=== PATIENT | female | born 1980 ===

== ENCOUNTER 2016-09-01 00:50 | Emergency (ER) | payer OTHER ==
[2016-09-01 00:50] VITALS: BMI 26.5
[2016-09-01 01:01] VITALS: O2SAT 100
[2016-09-01] MEDS ORDERED: Sodium Chloride 0.9% 1,000 ML IV ONE (01:03)
[2016-09-01] MEDS ORDERED: Iohexol 240 (50 ml) PO ONE (01:04)
[2016-09-01] MEDS ORDERED: Iohexol 240 (50 ml) ONE (01:14)
[2016-09-01] MEDS ORDERED: Sodium Chloride 0.9% 1,000 ML ONE (01:14)
--- NOTE | 2016-09-01 01:14 | C.PDOC ---
History Of Present Illness 36 y/o female complaining of abdominal pain x4 days associated with nausea, diarrhea, and dysuria. No vomiting, fever, chills, or other complaint. Reports a history of endometriosis with ablation years ago. Chief Complaint (Nursing): Abdominal Pain History Per: Patient History/Exam Limitations: no limitations Onset/Duration Of Symptoms: Days Current Symptoms Are (Timing): Still Present Severity: Moderate Location Of Pain/Discomfort: LUQ, LLQ Radiation Of Pain To:: None Quality Of Discomfort: "Pain" Associated Symptoms: Nausea, Diarrhea, Urinary Symptoms. denies: Fever, Chills , Vomiting, Loss Of Appetite, Back Pain, Chest Pain, Constipation Exacerbating Factors: None Alleviating Factors: None Recent travel outside of the [place]: No Past Medical History Vital Signs: Last Vital Signs Temp 97.9 F 09/01/16 03:56 Pulse 65 09/01/16 03:56 Resp 16 09/01/16 03:56 BP 101/65 09/01/16 03:56 Pulse Ox 100 09/01/16 05:57 - Medical History PMH: Denies: Diabetes, Hepatitis, HIV, HTN, Seizures, Sexually Transmitted Disease - [facility] Procedures INSPECTION OF BLADDER, ENDO (02/09/16) RESECTION OF BILATERAL FALLOPIAN TUBES, OPEN APPROACH (02/09/16) RESECTION OF CERVIX, OPEN APPROACH (02/09/16) RESECTION OF UTERUS, OPEN APPROACH (02/09/16) Family History: States: Unknown Family Hx - Social History Hx Alcohol Use: Yes Hx Substance Use: No - Immunization History Hx Tetanus Toxoid Vaccination: No Hx Influenza Vaccination: Yes Hx Pneumococcal Vaccination: Yes Review Of Systems Except As Marked, All Systems Reviewed And Found Negative. Gastrointestinal: Positive for: Nausea, Abdominal Pain, Diarrhea Genitourinary: Positive for: Dysuria Physical Exam - Physical Exam Appears: Well, No Acute Distress Skin: Normal Color, Warm, Dry Eye(s): bilateral: Normal Inspection, PERRL, EOMI Nose: Normal Throat: Normal Neck: Normal Cardiovascular: Rhythm Regular Respiratory: Normal Breath Sounds Gastrointestinal/Abdominal: Bowel Sounds, Soft, Tenderness (Severe left sided), No Mass, No Distention, No Guarding, No Rebound, No Hernia Back: Normal Inspection Extremity: Normal ROM ED Course And Treatment - Laboratory Results Result Diagrams: 09/01/16 01:15 09/01/16 01:15 O2 Sat by Pulse Oximetry: 100 (RA) Pulse Ox Interpretation: Normal Progress Note: Labs, IVF, CT Abdomen without and with contrast. Medical Decision Making Medical Decision Making: Name: JEANNETTE PRUITT Age: 36Years F Date: 09/01/2016 SSN: [id number] : [id number] Study: CT ABDOMEN/PELVIS W Requesting Physician: Bob Desai Images: 625 Addl Studies: Provided Clinical History: left sided abd pain CONFIDENTIALITY STATEMENT This transmission is confidential and is intended to be a privileged communication. It is intended only for the use of the addressee. Access to this message by anyone else is unauthorized. If you are not the intended recipient, any disclosure, copying, distribution or any action taken, or omitted to be taken in reliance on it is prohibited and may be unlawful. If you received this communication in error, please notify us by telephone, so that return of this document to us can be arranged. Page 1 of 3 EXAM: CT Abdomen and Pelvis With Intravenous Contrast CLINICAL HISTORY: 36 years old, female; Pain; Abdominal pain; Prior surgery; Surgery type: Hysterectomy; Additional info: Left sided abd pain TECHNIQUE: Axial computed tomography images of the abdomen and pelvis with intravenous contrast. This CT exam was performed using one or more of the following dose reduction techniques : automated exposure control, adjustment of the mA and/or kV according to patient size, and/ or use of iterative reconstruction technique. Coronal and sagittal reformatted images were created and reviewed. CONTRAST: 100 mL of [id number] administered intravenously. COMPARISON: No relevant prior studies available. FINDINGS: Lower thorax: Minimal atelectasis. 0.3 cm nodule vs focal scarring LEFT lower lobe. ABDOMEN: Liver: Unremarkable. No mass. Gallbladder and bile ducts: No calcified stones. No ductal dilation. Pancreas: No ductal dilation. No mass. Spleen: No splenomegaly. Adrenals: No mass. Kidneys and ureters: No mass. No hydronephrosis. Stomach and bowel: No definite mural thickening. No obstruction. Appendix: Normal caliber. No inflammation. PELVIS: Bladder: Unremarkable. Reproductive: 4.2 x 4.6 x 3.8 cm hypodense lesion within LEFT ovary. Small cyst/ follicle within RIGHT ovary. ABDOMEN and PELVIS: Intraperitoneal space: No significant fluid collection. No free air. Bones/joints: No acute fracture. Soft tissues: Unremarkable. Vasculature: Unremarkable. No abdominal aortic aneurysm. Lymph nodes: No pathologically enlarged lymph nodes. IMPRESSION: 1. Probable LEFT ovarian cyst. Consider ultrasound. 2. Pulmonary nodules. For low-risk patients, no follow-up is necessary. For high -risk patients (smoking history or other known risk factors) recommend CT at 12 months and if unchanged, no further follow-up. 3. Incidental/non-acute findings are described above. Thank you for allowing us to participate in the care of your patient. Dictated and Authenticated by: Daniel Nash MD EXAM: US Pelvis, Transvaginal CLINICAL HISTORY: 36 years old, female; Pain; Pelvic pain; Prior surgery; Surgery date: 6+ months ; Surgery type: Hysterectomy; Additional info: Lower abd pain TECHNIQUE: Real-time transvaginal pelvic ultrasound (complete) with image documentation. Transvaginal imaging was used for better evaluation of the endometrium and adnexa. COMPARISON: CT - ABD PELVIS PO IV CONTRAST 09/01/2016 2:45:23 AM FINDINGS: Uterus/cervix: Hysterectomy. Right ovary: 3.4 x 1.9 x 2.6 cm in size. 1.9 x 1.2 x 1.6 cm anechoic lesion with crenulated margins. Small follicles. Normal flow. Left ovary: 5.2 x 5.0 x 4.7 cm heterogeneous, predominately hyperechoic lesion within LEFT adnexal region. Free fluid: No significant free fluid. Bladder: Empty bladder which cannot be evaluated with this probe. IMPRESSION: 1. LEFT adnexal lesion, indeterminate. Recommend MRI correlation. 2. Involuting or ruptured RIGHT ovarian follicle/cyst. 3. Incidental/non-acute findings are described above. [facility] Dictated and Authenticated by: Daniel Nash MD 09/01/2016 5:18 AM Eastern Time ([place] & [place]) Disposition Counseled Patient/Family Regarding: Diagnosis - Disposition Referrals: [facility] at [facility] [Outside] Disposition: HOME/ ROUTINE Disposition Time: 05:49 Condition: STABLE Prescriptions: Ciprofloxacin [Cipro] 1 tab PO BID #14 tab Naproxen [Naprosyn Tab] 375 mg PO TIDPC #20 tab Instructions: Ovarian Cyst (ED), Urinary Tract Infection in Women (DC), Abdominal Pain (ED) Forms: Gen Discharge Inst Uzbek Print Language: BULGARIAN - POA Present On Arrival: None - Clinical Impression Clinical Impression: Abdominal pain, Urinary tract infection, Ovarian mass, left - Scribe Statement The provider has reviewed the documentation as recorded by the Scribe Dee Ramirez
[2016-09-01 01:18] LABS: BASO # 0.1 K/uL (0.0-0.2); EOS # 0.1 K/uL (0.0-0.7); EOS % 0.9 % (0.0-4.0); HEMATOCRIT 39.7 % (34.0-47.0); LYMPH # 3.9 K/uL (1.0-4.3); LYMPH % 32.7 % (20.0-40.0); MEAN CELL VOLUME 91.4 fL (81.0-99.0); MEAN CORPUSCULAR HEMOGLOBIN 30.8 pg (27.0-31.0); MEAN CORPUSCULAR HGB CONC 33.7 g/dL (33.0-37.0); MEAN PLATELET VOLUME 9.4 fL (7.2-11.7); MONO # 0.8 K/uL (0.0-0.8); MONO % 6.3 % (0.0-10.0); WHITE BLOOD COUNT 11.8 K/uL (4.8-10.8)
[2016-09-01 01:18] LABS: RBC URINE 33 /hpf (0-3); URINE BACTERIA RARE (<OCC); URINE BILIRUBIN NEGATIVE (NEGATIVE); URINE BLOOD 2+ (NEGATIVE); URINE COLOR Yellow (YELLOW); URINE GLUCOSE (UA) NORMAL (Normal); URINE KETONE TRACE mg/dL (NEGATIVE); URINE LEUKOCYTE ESTERASE 2+ Leu/uL (Negative); URINE PROTEIN 1+ mg/dL (NEGATIVE); URINE UROBILINOGEN NORMAL mg/dL (0.2-1.0); WBC URINE 12 /hpf (0-5)
[2016-09-01 01:33] LABS: CHLORIDE 99 mmol/L (98-107)
[2016-09-01 01:34] LABS: POTASSIUM 3.5 mmol/L (3.6-5.2); SODIUM 135 mmol/L (132-148)
[2016-09-01 01:36] LABS: BILIRUBIN,TOTAL 0.8 mg/dL (0.2-1.3); CARBON DIOXIDE 26 mmol/L (22-30); GFR AFRICAN-AMERICAN > 60
[2016-09-01 01:37] LABS: ALB/GLOB RATIO 1.2 (1.0-2.1); ALKALINE PHOSPHATASE 83 U/L (38-126); ALT/SGPT 22 U/L (9-52); AST/SGOT 33 U/L (14-36); BLOOD UREA NITROGEN 11 mg/dL (7-17); CALCIUM 8.8 mg/dl (8.6-10.4); GLUCOSE,RANDOM 89 mg/dL (65-105); TOTAL PROTEIN 7.5 g/dL (6.3-8.3)
[2016-09-01] MEDS ORDERED: Iodixanol 320 MG/ML 100 ML BOTTLE IV ONE (02:30)
[2016-09-01] MEDS ORDERED: Ciprofloxacin 400mg/200ml D5W 400 MG/200 ML BAG IVPB STA (02:33)
[2016-09-01] MEDS ORDERED: Ciprofloxacin 400mg/200ml D5W 400 MG/200 ML BAG IVPB ONE (02:48)
--- NOTE | 2016-09-01 03:25 | CT ---
EXAM: CT Abdomen and Pelvis With Intravenous Contrast CLINICAL HISTORY: 36 years old, female; Pain; Abdominal pain; Prior surgery; Surgery type: Hysterectomy; Additional info: Left sided abd pain TECHNIQUE: Axial computed tomography images of the abdomen and pelvis with intravenous contrast. This CT exam was performed using one or more of the following dose reduction techniques: automated exposure control, adjustment of the mA and/or kV according to patient size, and/or use of iterative reconstruction technique. Coronal and sagittal reformatted images were created and reviewed. CONTRAST: 100 mL of [id number] administered intravenously. COMPARISON: No relevant prior studies available. FINDINGS: Lower thorax: Minimal atelectasis. 0.3 cm nodule vs focal scarring LEFT lower lobe. ABDOMEN: Liver: Unremarkable. No mass. Gallbladder and bile ducts: No calcified stones. No ductal dilation. Pancreas: No ductal dilation. No mass. Spleen: No splenomegaly. Adrenals: No mass. Kidneys and ureters: No mass. No hydronephrosis. Stomach and bowel: No definite mural thickening. No obstruction. Appendix: Normal caliber. No inflammation. PELVIS: Bladder: Unremarkable. Reproductive: 4.2 x 4.6 x 3.8 cm hypodense lesion within LEFT ovary. Small cyst/follicle within RIGHT ovary. ABDOMEN and PELVIS: Intraperitoneal space: No significant fluid collection. No free air. Bones/joints: No acute fracture. Soft tissues: Unremarkable. Vasculature: Unremarkable. No abdominal aortic aneurysm. Lymph nodes: No pathologically enlarged lymph nodes. IMPRESSION: 1. Probable LEFT ovarian cyst. Consider ultrasound. 2. Pulmonary nodules. For low-risk patients, no follow-up is necessary. For high-risk patients (smoking history or other known risk factors) recommend CT at 12 months and if unchanged, no further follow-up. 3. Incidental/non-acute findings are described above.
--- NOTE | 2016-09-01 05:18 | US ---
EXAM: US Pelvis, Transvaginal CLINICAL HISTORY: 36 years old, female; Pain; Pelvic pain; Prior surgery; Surgery date: 6+ months; Surgery type: Hysterectomy; Additional info: Lower abd pain TECHNIQUE: Real-time transvaginal pelvic ultrasound (complete) with image documentation. Transvaginal imaging was used for better evaluation of the endometrium and adnexa. COMPARISON: CT - ABD PELVIS PO IV CONTRAST 09/01/2016 2:45:23 AM FINDINGS: Uterus/cervix: Hysterectomy. Right ovary: 3.4 x 1.9 x 2.6 cm in size. 1.9 x 1.2 x 1.6 cm anechoic lesion with crenulated margins. Small follicles. Normal flow. Left ovary: 5.2 x 5.0 x 4.7 cm heterogeneous, predominately hyperechoic lesion within LEFT adnexal region. Free fluid: No significant free fluid. Bladder: Empty bladder which cannot be evaluated with this probe. IMPRESSION: 1. LEFT adnexal lesion, indeterminate. Recommend MRI correlation. 2. Involuting or ruptured RIGHT ovarian follicle/cyst. 3. Incidental/non-acute findings are described above.
[2016-09-01 06:07] VITALS: BP 100/65; PULSE 64; RESP 18; TEMP 98
== END 2016-09-01 06:08 | disposition home or self-care (01) ==
LOC: C.ER 00:50
DX: N39.0 Urinary tract infection, site not specified (principal); N83.8 Other noninflammatory disorders of ovary, fallopian tube and broad ligament; R10.12 Left upper quadrant pain
CPT/HCPCS: 74177; 76830; 80053; 81001; 83690; 84702; 85025; 87086; 96365; 96375; 99285; J0744; J1885; J2270; J7040; Q9966; Q9967

== ENCOUNTER 2017-05-31 09:36 | Emergency (ER) | payer OTHER ==
[2017-05-31 09:37] VITALS: BMI 26.5
[2017-05-31 09:59] VITALS: RESP 18
[2017-05-31] MEDS ORDERED: Sodium Chloride 0.9% 1,000 ML IV ONE (10:50)
[2017-05-31] MEDS ORDERED: Sodium Chloride 0.9% 1,000 ML ONE (10:57)
--- NOTE | 2017-05-31 11:05 | C.PDOC ---
History Of Present Illness 37 y/o female presents to ED with complaints of left sided back pain radiating to the abdomen for 2 months worse for 3 days with associated dysuria and nausea. Patient states pain is worse with movement and last took Motrin 800mg yesterday with mild improvement. Patient denies fever, urinary frequency, hematuria, vaginal bleeding, vaginal discharge or any other complaints at this time. Time Seen by Provider: 05/31/17 10:19 Chief Complaint (Nursing): Abdominal Pain History Per: Patient History/Exam Limitations: no limitations Onset/Duration Of Symptoms: Days Current Symptoms Are (Timing): Still Present Past Medical History Reviewed: Historical Data, Nursing Documentation, Vital Signs Vital Signs: Last Vital Signs Temp 98 F 05/31/17 17:00 Pulse 98 H 05/31/17 17:00 Resp 18 05/31/17 17:00 BP 119/73 05/31/17 17:00 Pulse Ox 99 05/31/17 17:00 - Medical History PMH: No Chronic Diseases Surgical History: No Surg Hx - [facility] Procedures INSPECTION OF BLADDER, ENDO (02/09/16) RESECTION OF BILATERAL FALLOPIAN TUBES, OPEN APPROACH (02/09/16) RESECTION OF CERVIX, OPEN APPROACH (02/09/16) RESECTION OF UTERUS, OPEN APPROACH (02/09/16) Family History: States: No Known Family Hx - Social History Hx Alcohol Use: No Hx Substance Use: No - Immunization History Hx Tetanus Toxoid Vaccination: Yes Hx Influenza Vaccination: No Hx Pneumococcal Vaccination: No Review Of Systems Constitutional: Negative for: Fever, Chills Gastrointestinal: Positive for: Nausea, Abdominal Pain. Negative for: Vomiting Genitourinary: Positive for: Dysuria. Negative for: Frequency, Vaginal Discharge, Vaginal Bleeding Musculoskeletal: Positive for: Back Pain Skin: Negative for: Rash Physical Exam - Physical Exam Appears: Non-toxic, No Acute Distress Skin: Warm, Dry, No Rash Head: Atraumatic, Normacephalic Eye(s): bilateral: Normal Inspection, EOMI Nose: Normal Oral Mucosa: Moist Neck: Normal ROM, Supple Chest: Symmetrical Cardiovascular: Rhythm Regular Respiratory: Normal Breath Sounds, No Accessory Muscle Use, No Rales, No Rhonchi , No Wheezing Gastrointestinal/Abdominal: Soft, Tenderness (Suprapubic), No Guarding, No Rebound Back: No Vertebral Tenderness, Other (Left paralumbar tenderness) Extremity: Normal ROM Neurological/Psych: Oriented x3 ED Course And Treatment - Laboratory Results Result Diagrams: 05/31/17 11:10 05/31/17 11:10 O2 Sat by Pulse Oximetry: 100 (RA) Pulse Ox Interpretation: Normal - CT Scan/US Abdomen/ Pelvis Other Rad Studies (CT/US): Read By Radiologist, Radiology Report Reviewed CT/US Interpretation: PROCEDURE: CT Abdomen and Pelvis without intravenous contrast. HISTORY: Abdominal pain. COMPARISON: 09/01/2016. TECHNIQUE: CT scan of the abdomen and pelvis was performed without administration of intravenous contrast. Oral contrast was not administered. Coronal and sagittal reformatted images were obtained. Radiation dose: Total exam DLP = 309.95 mGy- cm. This CT exam was performed using one or more of the following dose reduction techniques: Automated exposure control, adjustment of the mA and/or kV according to patient size, and/or use of iterative reconstruction technique. FINDINGS: LOWER THORAX: The lung bases are clear. LIVER: Normal in size. No gross lesion or ductal dilatation. GALLBLADDER AND BILE DUCTS: The gallbladder is contracted. PANCREAS: Normal in size. No calcifications or ductal dilatation. SPLEEN: Normal in size and appearance. ADRENALS: No discrete nodule. KIDNEYS AND URETERS: Normal in size without hydronephrosis or nephrolithiasis. VASCULATURE: No aortic aneurysm. BOWEL: The small bowel loops are normal in caliber the colon is unremarkable. No bowel dilatation or obstruction. APPENDIX: Normal appendix. PERITONEUM: No free fluid. No free air. LYMPH NODES: No enlarged lymph nodes. BLADDER: Unremarkable. REPRODUCTIVE: The uterus is surgically absent. There is a 5.3 x 4.7 cm cystic mass with layering high attenuation fluid fluid level in the right ovary. BONES : No acute fracture. Within normal limits for the patient's age. OTHER FINDINGS: None. IMPRESSION: 1. 5.3 x 4.7 cm presumable hemorrhagic cyst in the right ovary. If clinically indicated, correlation with pelvic ultrasound may be performed to evaluate for torsion. 2. No CT evidence for acute abdominal or pelvic abnormality. Pelvic US Other Rad Studies (CT/US): Read By Radiologist, Radiology Report Reviewed CT/US Interpretation: Indication: Partial hysterectomy. Left lower quadrant pain. Comparison: Transvaginal pelvic ultrasound performed 09/01/16. Technique : Real-time transabdominal pelvic ultrasound was performed. In addition a transvaginal pelvic ultrasound was necessary to better depict pelvic anatomy. Findings: The patient is status post partial hysterectomy. The right ovary measures approximately 6.3 x 4.1 x 4.9 cm and complaints 5.1 x 3.8 x 4.2 cm complex right ovarian cyst, likely hemorrhagic cyst. The left ovary measures approximately 3.3 x 2.3 x 2.8 cm. Blood flow is demonstrated to both ovaries. No significant pelvic free fluid evident. Impression: Status post hysterectomy. 5.1 x 3.8 x 4.2 cm complex right ovarian cyst, likely hemorrhagic cyst. Recommend 6 week ultrasound follow-up to assess resolution. Progress Note: Blood work, UA ordered. Toradol Flexeril ordered. On re- evaluation, patient is resting comfortably. Notes currently pain improved though pain is intermittent. No fever, no bony tenderness, no numbness, no weakness, or abdominal pain. Tolerating PO. Pt was given results of CT /US and instructed outpt follow up in 1-2 days. Case discussed and results evlauated by Dr Somers, agreed upon plan and treatment. Disposition - Disposition Referrals: [facility] at [facility] [Outside] Disposition: HOME/ ROUTINE Disposition Time: 16:36 Condition: STABLE Additional Instructions: Follow up with primary medical doctor in 1-3 days without fail for further evaluation. Take medications as prescribed. Return to the emergency department at any time if symptoms persist or worsen. Prescriptions: Cyclobenzaprine [Cyclobenzaprine HCl] 10 mg PO BID #20 tab Naproxen [Naprosyn] 1 tab PO BID PRN #20 tab PRN Reason: Pain Instructions: Ovarian Cyst (ED) Forms: [employer] (Surinamese) Print Language: GUYANESE - Clinical Impression Clinical Impression: Back pain, Ovarian cyst - PA / SKIP TRACER / Resident Statement MD/DO has reviewed & agrees with the documentation as recorded. - Scribe Statement The provider has reviewed the documentation as recorded by the Dayna Patel All medical record entries made by the Dayna were at my direction and personally dictated by me. I have reviewed the chart and agree that the record accurately reflects my personal performance of the history, physical exam, medical decision making, and the department course for this patient. I have also personally directed, reviewed, and agree with the discharge instructions and disposition.
[2017-05-31 11:19] LABS: BASO % 0.5 % (0.0-2.0); EOS # 0.1 K/uL (0.0-0.7); EOS % 0.9 % (0.0-4.0); HEMOGLOBIN 13.7 g/dL (11.0-16.0); LYMPH # 1.6 K/uL (1.0-4.3); LYMPH % 21.5 % (20.0-40.0); MEAN CORPUSCULAR HEMOGLOBIN 32.3 pg (27.0-31.0); MEAN CORPUSCULAR HGB CONC 35.2 g/dL (33.0-37.0); MEAN PLATELET VOLUME 8.8 fL (7.2-11.7); MONO # 0.7 K/uL (0.0-0.8); MONO % 9.5 % (0.0-10.0); NEUT # 5.1 K/uL (1.8-7.0); NEUT % 67.6 % (50.0-75.0); RBC 4.24 Mil/uL (3.80-5.20); WHITE BLOOD COUNT 7.6 K/uL (4.8-10.8)
[2017-05-31 11:44] LABS: ALB/GLOB RATIO 1.2 (1.0-2.1); ALT/SGPT 23 U/L (9-52); AST/SGOT 22 U/L (14-36); BLOOD UREA NITROGEN 10 mg/dL (7-17); CALCIUM 9.1 mg/dl (8.6-10.4); GFR AFRICAN-AMERICAN > 60; GFR NON-AFRICAN AMERICAN > 60; LIPASE 67 U/L (23-300)
[2017-05-31 11:52] LABS: HCG,QUALITATIVE URINE NEGATIVE (NEGATIVE)
[2017-05-31 12:04] LABS: SQUAMOUS EPITHIAL 5 /hpf (0-5); URINE BACTERIA OCC (<OCC); URINE BILIRUBIN NEGATIVE (NEGATIVE); URINE BLOOD 2+ (NEGATIVE); URINE CLARITY Hazy (Clear); URINE COLOR Yellow (YELLOW); URINE GLUCOSE (UA) NORMAL (Normal); URINE LEUKOCYTE ESTERASE NEG Leu/uL (Negative); URINE NITRATE NEGATIVE (NEGATIVE); URINE PROTEIN NEGATIVE (NEGATIVE); URINE UROBILINOGEN NORMAL mg/dL (0.2-1.0)
--- NOTE | 2017-05-31 14:11 | CT ---
PROCEDURE: CT Abdomen and Pelvis without intravenous contrast HISTORY: Abdominal pain COMPARISON: 09/01/2016. TECHNIQUE: CT scan of the abdomen and pelvis was performed without administration of intravenous contrast. Oral contrast was not administered. Coronal and sagittal reformatted images were obtained. Radiation dose: Total exam DLP = 309.95 mGy-cm. This CT exam was performed using one or more of the following dose reduction techniques: Automated exposure control, adjustment of the mA and/or kV according to patient size, and/or use of iterative reconstruction technique. FINDINGS: LOWER THORAX: The lung bases are clear. LIVER: Normal in size. No gross lesion or ductal dilatation. GALLBLADDER AND BILE DUCTS: The gallbladder is contracted. PANCREAS: Normal in size. No calcifications or ductal dilatation. SPLEEN: Normal in size and appearance. ADRENALS: No discrete nodule. KIDNEYS AND URETERS: Normal in size without hydronephrosis or nephrolithiasis. VASCULATURE: No aortic aneurysm. BOWEL: The small bowel loops are normal in caliber the colon is unremarkable. No bowel dilatation or obstruction. APPENDIX: Normal appendix. PERITONEUM: No free fluid. No free air. LYMPH NODES: No enlarged lymph nodes. BLADDER: Unremarkable. REPRODUCTIVE: The uterus is surgically absent. There is a 5.3 x 4.7 cm cystic mass with layering high attenuation fluid fluid level in the right ovary. BONES: No acute fracture. Within normal limits for the patient's age. OTHER FINDINGS: None. IMPRESSION: 1. 5.3 x 4.7 cm presumable hemorrhagic cyst in the right ovary. If clinically indicated, correlation with pelvic ultrasound may be performed to evaluate for torsion. 2. No CT evidence for acute abdominal or pelvic abnormality.
--- NOTE | 2017-05-31 16:11 | US ---
Indication: Partial hysterectomy. Left lower quadrant pain Comparison: Transvaginal pelvic ultrasound performed 09/01/16 Technique: Real-time transabdominal pelvic ultrasound was performed. In addition a transvaginal pelvic ultrasound was necessary to better depict pelvic anatomy. Findings: The patient is status post partial hysterectomy. The right ovary measures approximately 6.3 x 4.1 x 4.9 cm and complaints 5.1 x 3.8 x 4.2 cm complex right ovarian cyst, likely hemorrhagic cyst. The left ovary measures approximately 3.3 x 2.3 x 2.8 cm. Blood flow is demonstrated to both ovaries. No significant pelvic free fluid evident. Impression: Status post hysterectomy. 5.1 x 3.8 x 4.2 cm complex right ovarian cyst, likely hemorrhagic cyst. Recommend 6 week ultrasound follow-up to assess resolution.
[2017-05-31] MEDS ORDERED: Oxycodone/Acetaminophen 5/325 mg Tab PO STA (16:35)
[2017-05-31 17:02] VITALS: BP 119/73; PULSE 98; TEMP 98
[2017-05-31 17:35] VITALS: O2SAT 100
== END 2017-05-31 17:02 | disposition home or self-care (01) ==
LOC: C.ER 09:36
DX: N83.201 Unspecified ovarian cyst, right side (principal); M54.9 Dorsalgia, unspecified
CPT/HCPCS: 74176; 76830; 76856; 80053; 81001; 83690; 84703; 85025; 87086; 96374; 99284; J1885; J7040

== ENCOUNTER 2017-10-07 08:50 | Emergency (ER) | payer OTHER ==
[2017-10-07 08:54] VITALS: BMI 22.8
[2017-10-07 08:57] VITALS: RESP 18; O2SAT 100
[2017-10-07] MEDS ORDERED: Sodium Chloride 0.9% 1,000 ML IV ONE (09:10)
--- NOTE | 2017-10-07 09:12 | C.PDOC ---
History Of Present Illness 37 year old female presents to ED for evaluation of headache and nausea since yesterday. Pt also reports diffuse abdominal pain and 4 episodes of diarrhea today. She denies fever, vomiting, diarrhea, chest pain, shortness of breath, dysuria, hematuria, neck pain/stiffness. Time Seen by Provider: 10/07/17 08:54 Chief Complaint (Nursing): Abdominal Pain History Per: Patient History/Exam Limitations: no limitations Onset/Duration Of Symptoms: Days Current Symptoms Are (Timing): Still Present Severity: Mild Location Of Pain/Discomfort: Diffuse Radiation Of Pain To:: None Quality Of Discomfort: "Pain" Associated Symptoms: Nausea, Diarrhea. denies: Fever, Chills, Vomiting, Urinary Symptoms Exacerbating Factors: None Additional History Per: Patient Past Medical History Reviewed: Historical Data, Nursing Documentation, Vital Signs Vital Signs: Last Vital Signs Temp 98.1 F 10/07/17 11:31 Pulse 59 L 10/07/17 11:31 Resp 18 10/07/17 11:31 BP 97/63 L 10/07/17 11:31 Pulse Ox 100 10/08/17 12:22 - Medical History PMH: No Chronic Diseases - [facility] Procedures INSPECTION OF BLADDER, ENDO (02/09/16) RESECTION OF BILATERAL FALLOPIAN TUBES, OPEN APPROACH (02/09/16) RESECTION OF CERVIX, OPEN APPROACH (02/09/16) RESECTION OF UTERUS, OPEN APPROACH (02/09/16) Family History: States: No Known Family Hx - Social History Hx Alcohol Use: No Hx Substance Use: No - Immunization History Hx Tetanus Toxoid Vaccination: Yes Hx Influenza Vaccination: No Hx Pneumococcal Vaccination: No Review Of Systems Except As Marked, All Systems Reviewed And Found Negative. Constitutional: Negative for: Fever, Chills Cardiovascular: Negative for: Chest Pain Respiratory: Negative for: Cough, Shortness of Breath Gastrointestinal: Positive for: Nausea, Abdominal Pain, Diarrhea. Negative for : Vomiting, Melena, Hematochezia Genitourinary: Negative for: Dysuria, Frequency, Hematuria Neurological: Positive for: Headache. Negative for: Weakness, Numbness, Dizziness Physical Exam - Physical Exam Appears: Well, Non-toxic, No Acute Distress Skin: Normal Color, Warm, Dry Head: Atraumatic, Normacephalic Eye(s): bilateral: Normal Inspection, PERRL, EOMI Oral Mucosa: Moist Neck: Supple, Other (no meningismus) Cardiovascular: Rhythm Regular Respiratory: Normal Breath Sounds, No Rales, No Rhonchi, No Wheezing Gastrointestinal/Abdominal: Bowel Sounds, Soft, Tenderness (epigastric, LLQ mild TTP), No Guarding, No Rebound, Other ((-)Ramey's, (-)McBurney's) Back: No CVA Tenderness Extremity: Normal ROM Neurological/Psych: Oriented x3 ED Course And Treatment - Laboratory Results Result Diagrams: 10/07/17 09:34 10/07/17 09:34 O2 Sat by Pulse Oximetry: 100 (RA) Pulse Ox Interpretation: Normal Progress Note: Blood work, UA, Upreg ordered and reviewed. Pt given IV NS bolus , IV toradol and IV Zofran. 11:15- Patient states she feels better. Will discharge home, Rxs for tylenol and zofran given. She was instructed to follow up with PMD in 1-2 days, and understands she should return to ED if symptoms worsen. Reevaluation Time: 10:50 Reassessment Condition: Improved (On reassessment, patient is resting comfortably, states her abdominal pain has resolved but she still has mild headache. PO tylenol ordered.) Disposition Counseled Patient/Family Regarding: Studies Performed, Diagnosis, Need For Followup, Rx Given - Disposition Referrals: Bernardo Pa Jr., MD [Medical Doctor] - Disposition: HOME/ ROUTINE Disposition Time: 11:25 Condition: STABLE Prescriptions: Acetaminophen [Tylenol 325mg tab] 650 mg PO Q6 PRN #30 tab PRN Reason: pain/fever Ondansetron [Zofran Odt] 4 mg PO Q8 PRN #10 odt PRN Reason: Nausea/Vomiting Instructions: Nausea and Vomiting, Adult (DC) Forms: [employer] (Thai) Print Language: MACEDONIAN - Clinical Impression Clinical Impression: Nausea, Vomiting, Abdominal pain, Headache - Scribe Statement The provider has reviewed the documentation as recorded by the Piliibjackelyn Acevedo All medical record entries made by the Scribe were at my direction and personally dictated by me. I have reviewed the chart and agree that the record accurately reflects my personal performance of the history, physical exam, medical decision making, and the department course for this patient. I have also personally directed, reviewed, and agree with the discharge instructions and disposition.
[2017-10-07 09:39] LABS: BASO % 0.6 % (0.0-2.0); EOS # 0.1 K/uL (0.0-0.7); EOS % 0.6 % (0.0-4.0); HEMOGLOBIN 14.4 g/dL (11.0-16.0); LYMPH # 2.7 K/uL (1.0-4.3); LYMPH % 32.3 % (20.0-40.0); MEAN CELL VOLUME 92.2 fL (81.0-99.0); MEAN CORPUSCULAR HEMOGLOBIN 32.1 pg (27.0-31.0); MEAN CORPUSCULAR HGB CONC 34.8 g/dL (33.0-37.0); MEAN PLATELET VOLUME 8.6 fL (7.2-11.7); MONO # 0.6 K/uL (0.0-0.8); MONO % 6.7 % (0.0-10.0); NEUT % 59.8 % (50.0-75.0); RBC 4.49 Mil/uL (3.80-5.20); RED CELL DISTRIBUTION WIDTH 13.1 % (11.5-14.5); WHITE BLOOD COUNT 8.4 K/uL (4.8-10.8)
[2017-10-07 09:42] LABS: HCG,QUALITATIVE URINE NEGATIVE (NEGATIVE)
[2017-10-07] MEDS ORDERED: Sodium Chloride 0.9% 1,000 ML ONE (09:44)
[2017-10-07 09:45] LABS: SQUAMOUS EPITHIAL < 1 /hpf (0-5); URINE BACTERIA OCC (<OCC); URINE BILIRUBIN NEGATIVE (NEGATIVE); URINE BLOOD 2+ (NEGATIVE); URINE CLARITY Clear (Clear); URINE COLOR Straw (YELLOW); URINE GLUCOSE (UA) NORMAL (Normal); URINE LEUKOCYTE ESTERASE NEG Leu/uL (Negative); URINE PROTEIN NEGATIVE (NEGATIVE); URINE UROBILINOGEN NORMAL mg/dL (0.2-1.0)
[2017-10-07 09:52] LABS: ALB/GLOB RATIO 1.4 (1.0-2.1); ALBUMIN 4.3 g/dL (3.5-5.0); ALT/SGPT 29 U/L (9-52); AST/SGOT 22 U/L (14-36); BLOOD UREA NITROGEN 9 mg/dL (7-17); GFR AFRICAN-AMERICAN > 60; GFR NON-AFRICAN AMERICAN > 60; LIPASE 93 U/L (23-300)
[2017-10-07 11:32] VITALS: BP 97/63; PULSE 59; TEMP 98.1
== END 2017-10-07 11:39 | disposition home or self-care (01) ==
LOC: C.ER 08:50
DX: R10.13 Epigastric pain (principal); R11.2 Nausea with vomiting, unspecified; R51 Headache
CPT/HCPCS: 80053; 81001; 83690; 84703; 85025; 96361; 96374; 96375; 99284; J1885; J2405; J7030

== ENCOUNTER 2018-02-23 14:50 | Emergency (ER) | payer OTHER ==
[2018-02-23 14:50] VITALS: BMI 22.8
[2018-02-23 15:06] VITALS: RESP 16; O2SAT 100
--- NOTE | 2018-02-23 15:40 | C.PDOC ---
History Of Present Illness 37 y/o female presents to the ED complaining of right lower quadrant pain and right-sided back pain, onset yesterday. Around 3:00am patient noted pain radiating from the right side across the abdomen. Patient also reports having the urgency to pass a bowel movement, but has been unable to. She denies any diarrhea, hematochezia, melena, fever, chills, or other complaints. Patient states she has been nauseous, no vomiting. She called her PMD Dr. Lobo, who referred to the ED for further evaluation. Time Seen by Provider: 02/23/18 15:39 Chief Complaint (Nursing): Abdominal Pain History Per: Learning Coach (parts interpreter Briseno #[id number]) History/Exam Limitations: no limitations Onset/Duration Of Symptoms: Days (x1) Current Symptoms Are (Timing): Still Present Location Of Pain/Discomfort: RLQ Past Medical History Reviewed: Historical Data, Nursing Documentation, Vital Signs Vital Signs: Last Vital Signs Temp 98.8 F 02/23/18 15:04 Pulse 66 02/23/18 15:04 Resp 16 02/23/18 15:04 BP 114/73 02/23/18 15:04 Pulse Ox 100 02/23/18 15:04 - Medical History PMH: Denies: Diabetes, Hepatitis, HIV, HTN, Seizures, Sexually Transmitted Disease Other Surgeries: Hysterectomy - [facility] Procedures INSPECTION OF BLADDER, ENDO (02/09/16) RESECTION OF BILATERAL FALLOPIAN TUBES, OPEN APPROACH (02/09/16) RESECTION OF CERVIX, OPEN APPROACH (02/09/16) RESECTION OF UTERUS, OPEN APPROACH (02/09/16) Family History: States: Unknown Family Hx - Social History Hx Alcohol Use: No Hx Substance Use: No - Immunization History Hx Tetanus Toxoid Vaccination: Yes Hx Influenza Vaccination: No Hx Pneumococcal Vaccination: No Review Of Systems Constitutional: Negative for: Fever, Chills, Sweats Cardiovascular: Negative for: Chest Pain Respiratory: Negative for: Shortness of Breath Gastrointestinal: Positive for: Nausea, Abdominal Pain (worse at RLQ), Constip ation. Negative for: Vomiting, Diarrhea, Melena, Hematochezia Musculoskeletal: Positive for: Back Pain (right-sided) Neurological: Negative for: Weakness, Dizziness Physical Exam - Physical Exam Appears: Non-toxic, No Acute Distress Skin: Warm, Dry Head: Normacephalic Eye(s): bilateral: Normal Inspection, PERRL, EOMI Oral Mucosa: Moist Neck: Trachea Midline, Supple, Other (No meningeal signs- negative kernig's and brudzinskis) Chest: Symmetrical Cardiovascular: Rhythm Regular, Other (no rub) Respiratory: No Rales, No Rhonchi, No Wheezing Gastrointestinal/Abdominal: Soft, Tenderness (to the RLQ, epigastrium, and periumbilical region), No Guarding, No Rebound Back: No CVA Tenderness (bilaterally) Extremity: Bilateral: Normal Color And Temperature Pulses: Left Dorsalis Pedis: Normal, Right Dorsalis Pedis: Normal Neurological/Psych: Oriented x3 ED Course And Treatment - Laboratory Results Result Diagrams: 02/23/18 16:39 02/23/18 16:39 O2 Sat by Pulse Oximetry: 100 (RA) Pulse Ox Interpretation: Normal Medical Decision Making Medical Decision Making: Impression: 37 y/o F p/w RLQ pain, right-sided back pain, and nausea. sent in by pmd to rule out appendicits. no diarrhea or recent abx. no chest pain or sob. Plan: Blood work UA EKG CT Abd/Pelvis with IV contrast IV fluids Zofran 4 mg IVP Morphine 4 mg IVP EKG: sinus ernestina at 59 bpm, no STEMI CT Abd/Pelvis: Normal appendix. Right ovarian cyst measuring up to 3.9 cm. Pelvic ultrasound can be obtained further evaluation as clinically warranted. 1908 Transvaginal US ordered. Pelvic/transvag Ultrasound: 1. Uterus is surgically removed. 2. Right ovarian complex 3.6 cm cyst. Consider follow-up study in 1-2 menstrual cycles. 2126 labs largely unremarkable clear for d/c home, pain improved, pt in nad, cyst non >5cm Disposition - Disposition Referrals: [facility] [Outside] Tatyana Kiran MD [Staff Provider] - Disposition: HOME/ ROUTINE Disposition Time: 22:07 Condition: GOOD Additional Instructions: JEANNETTE ESTRELLA, thank you for letting us take care of you today. Your provider was Cedric Rothman and you were treated for SENT BY PMD FOR EVAL. The emergency medical care you received today was directed at your acute symptoms. If you were prescribed any medication, please fill it and take as directed. It may take several days for your symptoms to resolve. Return to the Emergency Department if your symptoms worsen, do not improve, or if you have any other problems. Please contact your doctor or call one of the physicians/clinics you have been referred to that are listed on the Patient Visit Information form that is included in your discharge packet. Bring any paperwork you were given at discharge with you along with any medications you are taking to your follow up visit. Our treatment cannot replace ongoing medical care by a primary care provider outside of the emergency department. Thank you for allowing the [facility] team to be part of your care today. If you had an X-Ray or CT scan: A Radiologist will review the ED reading if any change in treatment is needed we will contact you. If you had a blood, urine, or wound culture: It will take several days for the results, if any change in treatment is needed we will contact you. If you had an STI test: It will take 48 hours for the results. Please call after 1 week if you have not heard back. Instructions: Ovarian Cysts Forms: [employer] (Bhutanese) - Clinical Impression Clinical Impression: Ovarian cyst - Scribe Statement The provider has reviewed the documentation as recorded by the Dayna Wellington Provider Attestation: All medical record entries made by the Piliibjackelyn were at my direction and personally dictated by me. I have reviewed the chart and agree that the record accurately reflects my personal performance of the history, physical exam, medical decision making, and the department course for this patient. I have also personally directed, reviewed, and agree with the discharge instructions and disposition.
[2018-02-23] MEDS ORDERED: Sodium Chloride 0.9% 1,000 ML IV SCH (16:15)
[2018-02-23] MEDS ORDERED: Sodium Chloride 0.9% 1,000 ML ONE (16:35)
[2018-02-23] MEDS ORDERED: Morphine 4 MG/ML VIAL ONE (16:35)
[2018-02-23 16:43] LABS: BASO # 0.1 K/uL (0.0-0.2); BASO % 0.7 % (0.0-2.0); EOS # 0.1 K/uL (0.0-0.7); EOS % 1.2 % (0.0-4.0); HEMOGLOBIN 13.1 g/dL (11.0-16.0); LYMPH # 3.4 K/uL (1.0-4.3); LYMPH % 39.9 % (20.0-40.0); MEAN CELL VOLUME 92.2 fL (81.0-99.0); MEAN CORPUSCULAR HEMOGLOBIN 31.7 pg (27.0-31.0); MEAN CORPUSCULAR HGB CONC 34.4 g/dL (33.0-37.0); MEAN PLATELET VOLUME 8.9 fL (7.2-11.7); MONO # 0.6 K/uL (0.0-0.8); NEUT # 4.4 K/uL (1.8-7.0); NEUT % 51.2 % (50.0-75.0); RBC 4.14 Mil/uL (3.80-5.20); RED CELL DISTRIBUTION WIDTH 12.9 % (11.5-14.5); WHITE BLOOD COUNT 8.6 K/uL (4.8-10.8)
[2018-02-23 17:08] LABS: ALB/GLOB RATIO 1.4 (1.0-2.1); ALBUMIN 4.1 g/dL (3.5-5.0); ALT/SGPT 21 U/L (9-52); AST/SGOT 21 U/L (14-36); BLOOD UREA NITROGEN 16 mg/dL (7-17); CALCIUM 8.9 mg/dl (8.6-10.4); GFR NON-AFRICAN AMERICAN > 60; LIPASE 106 U/L (23-300)
[2018-02-23] MEDS ORDERED: Iohexol 300 100 ML IJ ONE (17:53)
[2018-02-23 18:57] LABS: SQUAMOUS EPITHIAL 3 /hpf (0-5); URINE BACTERIA RARE (<OCC); URINE BILIRUBIN NEGATIVE (NEGATIVE); URINE BLOOD 1+ (NEGATIVE); URINE CLARITY Clear (Clear); URINE COLOR Yellow (YELLOW); URINE GLUCOSE (UA) NORMAL (Normal); URINE LEUKOCYTE ESTERASE NEG Leu/uL (Negative); URINE PROTEIN NEGATIVE (NEGATIVE); URINE UROBILINOGEN NORMAL mg/dL (0.2-1.0)
--- NOTE | 2018-02-23 19:03 | CT ---
Date of service: 02/23/2018 PROCEDURE: CT Abdomen and Pelvis with contrast HISTORY: rlq abd pain COMPARISON: CT scan of the abdomen pelvis dated 05/31/2017 TECHNIQUE: Contrast dose: 100 mL Omnipaque 300 Radiation dose: Total exam DLP = 264.06 mGy-cm. This CT exam was performed using one or more of the following dose reduction techniques: Automated exposure control, adjustment of the mA and/or kV according to patient size, and/or use of iterative reconstruction technique. FINDINGS: LOWER THORAX: Unremarkable. LIVER: Hepatic steatosis no gross lesion or ductal dilatation. GALLBLADDER AND BILE DUCTS: Unremarkable. PANCREAS: Unremarkable. No gross lesion or ductal dilatation. SPLEEN: Unremarkable. ADRENALS: Unremarkable. No mass. KIDNEYS AND URETERS: Unremarkable. No hydronephrosis. No solid mass. VASCULATURE: Unremarkable. No aortic aneurysm. No aortic atherosclerotic calcification or mural plaque present. BOWEL: Unremarkable. No obstruction. No gross mural thickening. APPENDIX: Normal appendix. PERITONEUM: Tiny fat containing umbilical hernia. No free fluid. No free air. LYMPH NODES: Unremarkable. No enlarged lymph nodes. BLADDER: Unremarkable. REPRODUCTIVE: Right ovarian cyst measuring 3.9 x 3.1 cm BONES: No acute fracture. OTHER FINDINGS: None. IMPRESSION: Normal appendix. Right ovarian cyst measuring up to 3.9 cm. Pelvic ultrasound can be obtained further evaluation as clinically warranted.
[2018-02-23 20:49] VITALS: BP 103/70; PULSE 57; TEMP 98.6
--- NOTE | 2018-02-25 17:38 | US ---
Date of service: 02/23/2018 HISTORY: ovarian cyst COMPARISON: None available. TECHNIQUE: Transabdominal and transvaginal pelvic ultrasound was performed with longitudinal and transverse images submitted for interpretation. FINDINGS: UTERUS: Uterus not identified status post prior hysterectomy. ENDOMETRIUM: Prior hysterectomy CERVIX: Vaginal cuff appears unremarkable. RIGHT OVARY: Measures 4.8 x 4.0 x 4.4 cm. Right ovary is enlarged by complex cyst measuring 3.6 x 3.1 x 3.3 cm with internal debris and septations noted. Normal flow. LEFT OVARY: Measures 2.9 x 3.2 x 2.3 cm. No solid mass. Normal flow. FREE FLUID: No significant free fluid noted. OTHER FINDINGS: None. IMPRESSION: The right ovary is enlarged by complex cyst 3.6 cm greatest dimension. Clinically correlate further. No evidence of ovarian torsion bilaterally. Consider follow-up transvaginal pelvic ultrasonography in 6-8 weeks to monitor right ovarian complex cyst. Prior hysterectomy. Concordant preliminary report from [facility], 02/23/2018.
--- NOTE | 2018-02-26 12:25 | CARD ---
APPROVED REPORT Date of service: 02/23/2018 EKG Measurement Heart [id number] <Conclusion> Sinus bradycardia Otherwise normal ECG
== END 2018-02-23 22:06 | disposition home or self-care (01) ==
LOC: C.ER 14:50
DX: N83.209 Unspecified ovarian cyst, unspecified side (principal)
CPT/HCPCS: 74177; 76830; 76856; 80053; 81001; 83690; 85025; 93005; 96361; 96374; 99284; J2405; J7030; Q9967

== ENCOUNTER 2018-06-16 06:56 | Emergency (ER) | payer OTHER ==
[2018-06-16 06:56] VITALS: BMI 22.8
[2018-06-16] MEDS ORDERED: Sodium Chloride 0.9% 1,000 ML IV ONE (07:35)
[2018-06-16] MEDS ORDERED: Iohexol 240 (50 ml) PO STA (07:35)
--- NOTE | 2018-06-16 07:35 | C.PDOC ---
History Of Present Illness 38 year old female presents to the ED for evaluation of recurrent left sided chest pain this morning, epigastic pain since last night, and acute exacerbated chronic lower back pain. The patient reports being previously diagnosed with musculoskeletal. She notes only taking Tylenol for the back pain. Reports episodes of non-radiating left-sided chest pain that began 3 days ago lasting several minutes, had a recurrent chest pain prior to arrival, in the ED the pain is still persistent. Notes epigastric pain since last night with multiple clear vomiting episodes. Denies fever, chills, and any other associated symptoms. SHx: hysterectomy PMHx: denies hx of chronic GI illness. Time Seen by Provider: 06/16/18 07:24 Chief Complaint (Nursing): Abdominal Pain History Per: Patient History/Exam Limitations: no limitations Onset/Duration Of Symptoms: Days Current Symptoms Are (Timing): Still Present Recent travel outside of the [place]: No Past Medical History Reviewed: Historical Data, Nursing Documentation, Vital Signs Vital Signs: Last Vital Signs Temp 98.7 F 06/16/18 06:59 Pulse 112 H 06/16/18 06:59 Resp 20 06/16/18 06:59 BP 109/75 06/16/18 06:59 Pulse Ox 100 06/16/18 06:59 - Medical History PMH: Denies: Diabetes, Hepatitis, HIV, HTN, Seizures, Sexually Transmitted Disease - [facility] Procedures INSPECTION OF BLADDER, ENDO (02/09/16) RESECTION OF BILATERAL FALLOPIAN TUBES, OPEN APPROACH (02/09/16) RESECTION OF CERVIX, OPEN APPROACH (02/09/16) RESECTION OF UTERUS, OPEN APPROACH (02/09/16) Family History: States: Unknown Family Hx - Social History Hx Alcohol Use: No Hx Substance Use: No - Immunization History Hx Tetanus Toxoid Vaccination: Yes Hx Influenza Vaccination: No Hx Pneumococcal Vaccination: No Review Of Systems Except As Marked, All Systems Reviewed And Found Negative. Constitutional: Negative for: Fever, Chills Cardiovascular: Positive for: Chest Pain (left-sided. ) Gastrointestinal: Positive for: Vomiting (clear. ), Abdominal Pain (epigastric. ) Musculoskeletal: Positive for: Back Pain (exacerbated chronic lower back pain.) Physical Exam - Physical Exam Appears: Other (mild distress.) Skin: Warm, Dry, No Other (turgor normal. ) Head: Atraumatic, Normacephalic Eye(s): bilateral: Normal Inspection, Other (anicteric.) Oral Mucosa: Moist Neck: Normal ROM, Supple Chest: Symmetrical, No Deformity Cardiovascular: Rhythm Regular, No Murmur Respiratory: Normal Breath Sounds, No Rales, No Rhonchi, No Wheezing, Other (NARD) Gastrointestinal/Abdominal: Soft, Tenderness (epigastric.) Extremity: Bilateral: Atraumatic, Normal Color And Temperature, Normal ROM Neurological/Psych: Oriented x3, Normal Speech, Normal Cognition ED Course And Treatment - Laboratory Results Result Diagrams: 06/16/18 07:45 06/16/18 07:45 ECG: Interpreted By Me, Viewed By Me ECG Rhythm: Sinus Tachycardia ECG Interpretation: Abnormal Rate From EC O2 Sat by Pulse Oximetry: 100 (RA) Pulse Ox Interpretation: Normal - Radiology CXR: Interpreted by Me, Viewed By La CXR Interpretation: No: No Acute Disease, Infiltrates - CT Scan/US US ABD Other Rad Studies (CT/US): Read By Radiologist CT/US Interpretation: FINDINGS: LIVER: Measures 12.8 cm in length. Diffusely increased echogenicity of the liver parenchyma. Consistent with mild fatty infiltration of the liver. Smooth contour. No mass. No biliary ductal dilatation. GALLBLADDER: Unremarkable. No gallstones. COMMON BILE DUCT: Measures 4 mm. No stones. No dilatation. PANCREAS: Unremarkable as visualized. No mass. No ductal dilatation. RIGHT KIDNEY: Measures 9.7 cm in length. Normal echogenicity. No calculus, mass, or hydronephrosis. AORTA: No aneurysmal dilatation. IVC: Unremarkable. OTHER FINDINGS: None . IMPRESSION: Mild diffuse fatty infiltration of the liver. Otherwise unremarkable examination. CT ABD/Pelvis Other Rad Studies (CT/US): Read By Radiologist CT/US Interpretation: FINDINGS: LOWER THORAX: Unremarkable. LIVER: Unremarkable. No gross lesion or ductal dilatation. GALLBLADDER AND BILE DUCTS: Unremarkable. PANCREAS: Unremarkable. No gross lesion or ductal dilatation. SPLEEN: Unremarkable. ADRENALS: Unremarkable. No mass. KIDNEYS AND URETERS: Unremarkable. No hydronephrosis. No solid mass. VASCULATURE: Unremarkable. No aortic aneurysm. No aortic atherosclerotic calcification or mural plaque present. BOWEL: There is circumferential mural thickening of loops of distal but not terminal ileum consistent with nonspecific enteritis. There is no bowel obstruction. No other abnormal bowel loops are identified. APPENDIX: Normal appendix. PERITONEUM: Unremarkable. No free fluid. No free air. LYMPH NODES: Unremarkable. No enlarged lymph nodes. BLADDER: Unremarkable. REPRODUCTIVE: Status post hysterectomy. BONES: No acute fracture. OTHER FINDINGS: None. IMPRESSION: Findings consistent with nonspecific enteritis. Mural thickening of loops of distal but not terminal ileum. No bowel obstruction. No additional abnormality. Reevaluation Time: 11:51 Reassessment Condition: Improved (NO S/S ACUTE ABD. SOFT NT ND NO R/G. CT REPORT REVIEWED) Medical Decision Making Medical Decision Making: Initial plan: -CT ABD & Pelvis PO & IV Contrast -EKG -US ABD Limited -Blood sent. -CXR -Benadryl -Morphine -Pepcid -Zofran -Urinalysis Disposition Counseled Patient/Family Regarding: Studies Performed, Diagnosis, Need For Followup, Rx Given - Disposition Referrals: YOUR,PMD [Other] Bernardo Pa Jr., MD [Medical Doctor] - Disposition: HOME/ ROUTINE Disposition Time: 11:55 Condition: IMPROVED Prescriptions: Dicyclomine [Bentyl] 20 mg PO TID PRN #12 tab PRN Reason: Pain Ondansetron ODT [Zofran ODT] 4 mg PO TID PRN #12 odt PRN Reason: Nausea/Vomiting Instructions: Nausea and Vomiting, Adult (DC), Chest Pain (DC) Forms: [facility] (Burmese) - Clinical Impression Clinical Impression: Epigastric pain, Chest pain - Scribe Statement The provider has reviewed the documentation as recorded by the Scribe (Gayathri Tyson) Provider Attestation: All medical record entries made by the Scribe were at my direction and personally dictated by me. I have reviewed the chart and agree that the record accurately reflects my personal performance of the history, physical exam, medical decision making, and the department course for this patient. I have also personally directed, reviewed, and agree with the discharge instructions and disposition.
[2018-06-16] MEDS ORDERED: DiphenhydrAMINE 50 mg/ml Inj IVP STA (07:38)
[2018-06-16 07:48] LABS: BASO % 0.1 % (0.0-2.0); EOS % 0.3 % (0.0-4.0); HEMOGLOBIN 14.4 g/dL (11.0-16.0); LYMPH # 0.5 K/uL (1.0-4.3); LYMPH % 5.1 % (20.0-40.0); MEAN CORPUSCULAR HEMOGLOBIN 32.3 pg (27.0-31.0); MEAN CORPUSCULAR HGB CONC 34.4 g/dL (33.0-37.0); MEAN PLATELET VOLUME 8.7 fL (7.2-11.7); MONO # 0.8 K/uL (0.0-0.8); NEUT % 86.5 % (50.0-75.0); PLATELET COUNT 241 K/uL (130-400); RBC 4.46 Mil/uL (3.80-5.20); RED CELL DISTRIBUTION WIDTH 13.2 % (11.5-14.5); WHITE BLOOD COUNT 10.4 K/uL (4.8-10.8)
[2018-06-16] MEDS ORDERED: DiphenhydrAMINE 50 mg/ml Inj ONE (07:51)
[2018-06-16] MEDS ORDERED: Sodium Chloride 0.9% 1,000 ML ONE (07:51)
[2018-06-16] MEDS ORDERED: Iohexol 240 (50 ml) ONE (07:51)
[2018-06-16 07:59] LABS: SQUAMOUS EPITHIAL 19 /hpf (0-5); URINE BACTERIA OCC (<OCC); URINE BILIRUBIN NEGATIVE (NEGATIVE); URINE BLOOD 2+ (NEGATIVE); URINE CLARITY Hazy (Clear); URINE COLOR Yellow (YELLOW); URINE GLUCOSE (UA) NORMAL (Normal); URINE LEUKOCYTE ESTERASE NEG Leu/uL (Negative); URINE PROTEIN 1+ mg/dL (NEGATIVE); URINE UROBILINOGEN NORMAL mg/dL (0.2-1.0)
[2018-06-16 08:10] LABS: ALB/GLOB RATIO 1.4 (1.0-2.1); ALBUMIN 4.1 g/dL (3.5-5.0); ALT/SGPT 23 U/L (9-52); AST/SGOT 27 U/L (14-36); BLOOD UREA NITROGEN 13 mg/dL (7-17); GFR NON-AFRICAN AMERICAN > 60; LIPASE 82 U/L (23-300)
[2018-06-16 08:25] LABS: BANDS 8 % (0-2); LYMPHOCYTE 7 % (20-40); MONOCYTE 7 % (0-10); NEUTROPHIL 78 % (50-75); PLATELET ESTIMATE NORMAL (NORMAL); TOTAL CELLS COUNTED 100
[2018-06-16 08:26] LABS: ANISOCYTOSIS SLIGHT
[2018-06-16 09:10] VITALS: RESP 18
--- NOTE | 2018-06-16 09:52 | US ---
Date of service: 06/16/2018 HISTORY: abd pain COMPARISON: None. TECHNIQUE: Sonographic evaluation of the right upper quadrant of the abdomen. FINDINGS: LIVER: Measures 12.8 cm in length. Diffusely increased echogenicity of the liver parenchyma. Consistent with mild fatty infiltration of the liver. Smooth contour. No mass. No biliary ductal dilatation. GALLBLADDER: Unremarkable. No gallstones. COMMON BILE DUCT: Measures 4 mm. No stones. No dilatation. PANCREAS: Unremarkable as visualized. No mass. No ductal dilatation. RIGHT KIDNEY: Measures 9.7 cm in length. Normal echogenicity. No calculus, mass, or hydronephrosis. AORTA: No aneurysmal dilatation. IVC: Unremarkable. OTHER FINDINGS: None . IMPRESSION: Mild diffuse fatty infiltration of the liver. Otherwise unremarkable examination.
[2018-06-16] MEDS ORDERED: Iodixanol 320 MG/ML 100 ML BOTTLE IV ONE (09:55)
--- NOTE | 2018-06-16 11:16 | CT ---
Date of service: 06/16/2018 PROCEDURE: CT Abdomen and Pelvis with contrast HISTORY: abd pain RO OBSTRUCT COMPARISON: 02/23/2018 TECHNIQUE: Contrast dose: 100 mL Visipaque 320 Radiation dose: Total exam DLP = 260.51 mGy-cm. This CT exam was performed using one or more of the following dose reduction techniques: Automated exposure control, adjustment of the mA and/or kV according to patient size, and/or use of iterative reconstruction technique. FINDINGS: LOWER THORAX: Unremarkable. LIVER: Unremarkable. No gross lesion or ductal dilatation. GALLBLADDER AND BILE DUCTS: Unremarkable. PANCREAS: Unremarkable. No gross lesion or ductal dilatation. SPLEEN: Unremarkable. ADRENALS: Unremarkable. No mass. KIDNEYS AND URETERS: Unremarkable. No hydronephrosis. No solid mass. VASCULATURE: Unremarkable. No aortic aneurysm. No aortic atherosclerotic calcification or mural plaque present. BOWEL: There is circumferential mural thickening of loops of distal but not terminal ileum consistent with nonspecific enteritis. There is no bowel obstruction. No other abnormal bowel loops are identified. APPENDIX: Normal appendix. PERITONEUM: Unremarkable. No free fluid. No free air. LYMPH NODES: Unremarkable. No enlarged lymph nodes. BLADDER: Unremarkable. REPRODUCTIVE: Status post hysterectomy BONES: No acute fracture. OTHER FINDINGS: None. IMPRESSION: Findings consistent with nonspecific enteritis. Mural thickening of loops of distal but not terminal ileum. No bowel obstruction. No additional abnormality.
[2018-06-16 11:24] VITALS: BP 98/65; PULSE 92; TEMP 98.9
[2018-06-16] MEDS ORDERED: Oxycodone/Acetaminophen 5/325 mg Tab PO STA (11:51)
[2018-06-16 11:54] VITALS: O2SAT 100
[2018-06-16] MEDS ORDERED: Oxycodone/Acetaminophen 5/325 mg Tab ONE (12:01)
--- NOTE | 2018-06-16 15:02 | RAD ---
Date of service: 06/16/2018 PROCEDURE: CHEST RADIOGRAPH, 1 VIEW HISTORY: abd pain COMPARISON: None available. FINDINGS: LUNGS: Clear. PLEURA: No pneumothorax or pleural fluid seen. CARDIOVASCULAR: No aortic atherosclerotic calcification present. Normal. OSSEOUS STRUCTURES: No significant abnormalities. VISUALIZED UPPER ABDOMEN: Normal. OTHER FINDINGS: None. IMPRESSION: No active disease.
--- NOTE | 2018-06-19 20:00 | CARD ---
APPROVED REPORT Date of service: 06/16/2018 EKG Measurement Heart [id number] IA [id number] <Conclusion> Sinus tachycardia Junctional ST depression, probably normal Borderline ECG
== END 2018-06-16 12:27 | disposition home or self-care (01) ==
LOC: C.ER 06:56
DX: R10.13 Epigastric pain (principal); R07.9 Chest pain, unspecified
CPT/HCPCS: 71045; 74177; 76705; 80053; 81001; 81025; 83690; 84484; 85025; 93005; 96361; 96374; 96375; 99285; J1200; J2270; J2405; J7030; Q9966; Q9967

== ENCOUNTER 2018-08-21 07:34 | Outpatient (CLI) | payer OTHER | END 2018-08-21 07:35 | disposition home or self-care (01) | LOC: C.USIC 07:34 | DX: N83.292 Other ovarian cyst, left side (principal) ==